=== PATIENT | male | born 1950 | race Asian ===

== ENCOUNTER 2019-04-08 20:40 | Emergency (ER) | payer SELFPAY ==
[~2019-04-08] VITALS: Ht 167.6 cm; Wt 73.0 kg
[2019-04-08 22:32] VITALS: BP 164/79
== END 2019-04-08 22:32 | disposition home or self-care (01) ==
LOC: ED 20:40
DX: S62.632A Displaced fracture of distal phalanx of right middle finger, initial encounter for closed fracture (principal); S61.212A Laceration without foreign body of right middle finger without damage to nail, initial encounter; W22.8XXA Striking against or struck by other objects, initial encounter; Y93.89 Activity, other specified; Y92.89 Other specified places as the place of occurrence of the external cause; Y99.8 Other external cause status
CPT/HCPCS: 90715; J2001; Q0092

== ENCOUNTER 2019-04-10 10:59 | Emergency (ER) | payer SELFPAY ==
[~2019-04-10] VITALS: Ht 165.1 cm; Wt 63.5 kg
[2019-04-10 11:04] VITALS: BP 160/89
== END 2019-04-10 12:09 | disposition home or self-care (01) ==
LOC: ED 10:59
DX: S61.212D Laceration without foreign body of right middle finger without damage to nail, subsequent encounter (principal); I10 Essential (primary) hypertension; W22.8XXD Striking against or struck by other objects, subsequent encounter